=== PATIENT | male | born 1945 | race Caucasian/White ===

== ENCOUNTER 2019-11-30 11:49 | Emergency (ER) | payer MEDICARE ==
[2019-11-30 12:03] LABS: Hemoglobin 10.8 g/dL (14.0-18.0); Mean Corpuscular HGB CONC 32.4 g/dL (32.0-36.0); Mean Corpuscular Hemoglobin 35.5 pg (27.0-31.0); Mean Platelet Volume 5.3 fL (7.4-10.4); Platelet Count 223 thou/uL (130-400); RBC Distribution Width 12.9 % (11.5-14.5); Red Blood Cell (RBC) Count 3.05 mill/uL (4.70-6.10); White Blood Cell (WBC) Count 5.2 thou/uL (4.8-10.8)
[2019-11-30 12:13] LABS: INR-International Normal Ratio 0.9; Prothrombin Time 12.5 sec (12.0-14.7)
[2019-11-30 12:14] LABS: PTT 29.4 sec (22.9-36.1)
--- NOTE | 2019-11-30 12:14 | CT ---
CT head noncontrast HISTORY: Left-sided weakness. FINDINGS: There is no evidence of acute intracranial hemorrhage or infarct. Mild diffuse cortical atr ophy. Chronic ischemic small vessel disease is present throughout the periventricular white matter of each cerebral hemisphere. Symmetric areas of decreased density at the floor of each frontal lobe may reflect encephalomalacia f rom old trauma or may be related to chronic ischemic small vessel disease. There is no mass effect or shift of midline structures. Visualized paranasal sinuses remain well-aerated. IMPRESSION : Evidence of chronic ischemic small vessel disease. No acute intracranial abnormalities are demonstrat ed.
[2019-11-30 12:17] LABS: ALT (SGPT) 19 U/L (8-55); AST (SGOT) 24 U/L (5-34); Albumin 4.1 g/dL (3.4-4.8); Alkaline Phosphatase 82 U/L (40-110); Anion Gap 16 mmol/L (10-20); BUN (Urea Nitrogen) 17 mg/dL (8.4-25.7); Bilirubin, Total 0.7 mg/dL (0.2-1.2); CK (CPK) 236 U/L (30-200); Calc. Creatinine Clearance 0 mL/min (70-130); Calcium 9.5 mg/dL (7.8-10.44); Carbon Dioxide 25 mmol/L (23-31); Chloride 89 mmol/L (98-107); Estimated GFR-MDRD 87; Globulin 2.9 g/dL (2.4-3.5); Glucose 102 mg/dL (83-110); Sodium 125 mmol/L (136-145)
[2019-11-30 12:20] LABS: #Basophils 0.1 thou/uL (0.0-0.2); #Eosinphils 0.2 thou/uL (0.0-0.7); #Monocytes 0.5 thou/uL (0.11-0.59); #Neutrophils 3.5 thou/uL (1.40-6.50); %Basophils 1.5 % (0.0-1.0); %Eosinophils 3.2 % (0.0-10.0); %Lymphocytes 18.4 % (21.0-51.0); %Monocytes 10.3 % (0.0-10.0); %Neutrophils 66.7 % (42.0-75.0); MDiff Complete? YES; Macrocytosis MODERATE=16-30 cells (100X) (0-5/hpf)
[2019-11-30 12:34] LABS: Acetaminophen Less than 6.0 mcg/mL (10.0-30.0); Alcohol Less than 10 mg/dL (Less than 10); Salicylate Less than 8.0 mg/dL (15.0-30.0)
[2019-11-30] MEDS ORDERED: Iopamidol 370 76% 100 ML VIAL ONE (12:50)
--- NOTE | 2019-11-30 13:22 | CT ---
CT arteriogram neck with IV contrast and 3-D imaging CT arteriogram head with IV contrast and 3-D imaging HISTORY: Left-sided weakness. FINDINGS: There is good contrast opacification of the aortic arch with normal branching of the great vessels. Prominent calcification throughout the arterial structures. Good flow into each carotid and vertebral system. At the right carotid bifurcation, there is prominent calcification. Internal carotid artery is widely patent. Focal area of narrowing at the proximal external carotid artery estimated at 50%. Calcification at the left carotid bifurcation. Internal and external carotid arteries are patent. [place] is intact with predominant persistent origin of the right posterior cerebral a rtery. Good flow into each cerebral and cerebellar system. No enhancing brain lesion evident. Prominent degenerative changes throughout the cervical spine Tiny nonspecific cystic lesion is partially visualized at the inferior pole of the left thyroid lobe. Emphysematous changes are apparent at the lung apices. IMPRESSION : Prominent atherosclerosis. No acute vascular abnormalities are apparent. Incidental note of mild stenosis of the right external carotid artery.
[2019-11-30] MEDS ORDERED: Aspirin Chewable 81 MG TAB ONE (13:29)
--- NOTE | 2019-11-30 18:36 | RAD ---
PORTABLE CHEST: 11/30/19 The lungs are hyperexpanded on this portable film at 1231. No lobar consolidation or effusion was see n. There is some slight lingular streaking which is probably a fat pad or scarring. Faint calcificati on is seen in the aortic arch. The trachea is midline. IMPRESSION: Hyperinflated lungs but no acute finding. POS: HOME
== END 2019-11-30 13:50 | disposition short-term general hospital (02) ==
LOC: BURERS 11:49
DX: G45.9 Transient cerebral ischemic attack, unspecified (principal); E87.1 Hypo-osmolality and hyponatremia; I10 Essential (primary) hypertension; J44.9 Chronic obstructive pulmonary disease, unspecified; F17.210 Nicotine dependence, cigarettes, uncomplicated; Z79.899 Other long term (current) drug therapy; Z79.82 Long term (current) use of aspirin
CPT/HCPCS: 0042T; 70450; 70496; 71045; 80053; 80307; 82550; 82962; 83880; 84484; 85025; 85610; 85730; 93005; 96360; 99285; 36416; Q9967